=== PATIENT | female | born 1955 | race Caucasian/White ===

== ENCOUNTER 2018-07-07 01:47 | Outpatient (CLI) | payer BC, SELFPAY ==
[2018-07-07 08:00] LABS: Abs Immature Grans 0.01 k/cumm (0.0-0.09); Absolute Basophil Count 0.03 k/cumm (0.0-0.2); Absolute Lymphocyte Count 0.85 k/cumm (1.2-3.4); Basophils % 0.6; Eosinophils % 1.9; HCT 39.6 % (36.0-46.0); HGB 13.1 g/dL (12.0-15.5); Immature Grans % 0.2; Lymphocytes % 16.4; Mean Corp. HGB Concentration 33.1 g/dL (32.0-36.0); Mean Corpuscular Hemoglobin 30.6 pg (27.0-33.0); Mean Corpuscular Volume 92.5 fL (80-95); Mean Platelet Volume 8.8 fL (8.0-11.0); Monocytes % 7.7; Neutrophils % 73.2; Platelet Count 330 x1000/uL (130-400); RBC 4.28 m/cumm (4.00-5.20); RBC Distribution Width 14.1 % (11.7-14.6); White Blood Cell Count 5.19 k/cumm (4.4-10.8)
[2018-07-07 08:05] LABS: Anion Gap 5.9 mmol/L (3-11); BUN 25 mg/dL (7-18); CO2 31.1 mmol/L (21.0-32.0); CREATININE 0.78 mg/dL (0.55-1.02); Calcium 9.1 mg/dL (8.5-10.1); Chloride 104 mmol/L (98-107); Glucose 111 mg/dL (70-100); Potassium 3.9 mmol/L (3.5-5.1); Sodium 141 mmol/L (136-145)
[2018-07-08 09:47] LABS: IgA 370 mg/dL (85-499); IgG 1168 mg/dL (610-1616); IgM 21 mg/dL (35-242); Kappa Free Light Chain 1.54 mg/dl (0.33-1.94); Lambda Free Light Chain 6.09 mg/dl (0.57-2.63)
[2018-07-08 13:11] LABS: Albumin 60.2 % (55.8-66.1); Monoclonal Spike 7.8 %; Total Protein 7.1 g/dl (6.3-8.2)
== END 2018-07-07 02:07 ==
PROVIDERS: Nurse Practitioner; PCP Family Medicine; Visit Provider Internal Medicine Hematology & Oncology
DX: C90.00 Multiple myeloma not having achieved remission (principal)
CPT/HCPCS: 36415; 80048; 82784; 83883; 84165; 85025

== ENCOUNTER 2019-06-28 07:08 | Outpatient (CLI) | payer BC, SELFPAY ==
[2019-06-28 07:45] LABS: Abs Immature Grans 0.01 k/cumm (0.0-0.09); Absolute Basophil Count 0.05 k/cumm (0.0-0.2); Absolute Eosinophil Count 0.26 k/cumm (0.0-0.7); Absolute Lymphocyte Count 1.01 k/cumm (1.2-3.4); Absolute Monocyte Count 0.37 k/cumm (0.11-0.7); Absolute Neutrophil Count 3.92 k/cumm (1.2-6.7); Basophils % 0.9; Eosinophils % 4.6; HCT 39.2 % (36.0-46.0); Immature Grans % 0.2 %; Mean Corp. HGB Concentration 33.2 g/dL (32.0-36.0); Mean Corpuscular Hemoglobin 30.6 pg (27.0-33.0); Mean Corpuscular Volume 92.2 fL (80-95); Mean Platelet Volume 8.7 fL (8.0-11.0); Monocytes % 6.6; Neutrophils % 69.7; Platelet Count 354 x1000/uL (130-400); RBC 4.25 m/cumm (4.00-5.20); RBC Distribution Width 14.1 % (11.7-14.6); White Blood Cell Count 5.62 k/cumm (4.4-10.8)
[2019-06-28 08:56] LABS: ALT 31 U/L (14-59); AST 24 U/L (15-37); Albumin 3.8 g/dL (3.4-5.0); Alkaline Phosphatase 99 U/L (46-116); Anion Gap 8.3 mmol/L (3-11); BUN 21 mg/dL (7-18); Bilirubin, Total 0.6 mg/dL (0.2-1.0); CO2 29.7 mmol/L (21.0-32.0); CREATININE 0.83 mg/dL (0.55-1.02); Chloride 103 mmol/L (98-107); Glucose 110 mg/dL (74-106); Potassium 4.1 mmol/L (3.5-5.1); Sodium 141 mmol/L (136-145); Total Protein 7.3 g/dL (6.4-8.2)
[2019-06-29 11:17] LABS: IgA 330 mg/dL (85-499); IgG 1269 mg/dL (610-1,616); IgM 25 mg/dL (35-242); Kappa Free Light Chain 1.34 mg/dL (0.33-1.94); Lambda Free Light Chain 8.77 mg/dL (0.57-2.63)
[2019-06-29 15:53] LABS: Albumin 57.8 % (55.8-66.1); Comment (See Note); Monoclonal Spike 7.7 % (None Seen); Total Protein 7.2 g/dL (6.3-8.2)
[2019-07-06 13:02] LABS: Immunotyping, Serum (See Note)
== END 2019-06-28 07:28 ==
PROVIDERS: PCP Family Medicine; Visit Provider Internal Medicine Hematology & Oncology
DX: C90.00 Multiple myeloma not having achieved remission (principal)
CPT/HCPCS: 36415; 80053; 82784; 83883; 84165; 85025; 86320

== ENCOUNTER 2020-02-06 14:28 | Outpatient (REF) | payer BC, SELFPAY ==
[2020-02-09 05:47] LABS: Patient Race White; SARS-CoV-2 RNA Undetected (Undetected); SARS-CoV-2 Specimen Source Nasopharynx
== END 2020-02-06 14:48 ==
LOC: NCHCN 14:28
PROVIDERS: PCP Family Medicine; Visit Provider Family Medicine
DX: Z20.828 Contact with and (suspected) exposure to other viral communicable diseases (principal)
CPT/HCPCS: U0003

== ENCOUNTER 2021-07-08 14:37 | Outpatient (REF) | payer BC, SELFPAY ==
[2021-07-08 16:14] LABS: Calculated LDL 88 mg/dL (<100); Cholesterol 174 mg/dL (<200); HDL Cholesterol 77 mg/dL (40-60); Triglyceride 49 mg/dL (<150)
== END 2021-07-08 14:38 | disposition home or self-care (01) ==
LOC: NCHCN 14:37
PROVIDERS: PCP Family Medicine; Visit Provider Family Medicine
DX: E66.3 Overweight (principal)
CPT/HCPCS: 80061

== ENCOUNTER 2021-07-23 01:43 | Outpatient (CLI) | payer BC, SELFPAY ==
--- NOTE | 2021-07-23 | DI.DEXA_ITS ---
Exam(s) XR DEXA BONE DENSITY W/WO DIANA EXAM: XR DEXA BONE DENSITY W/WO DIANA CLINICAL HISTORY: OSTEOPENIA,M85.80 TECHNIQUE: COMPARISON: Comparison examination is 12/27/2013. FINDINGS: Lateral Spine Image: Unremarkable. No compression deformities identified. Left hip: Total T-Score: -0.1. This compares to 0.0 on the prior examination. Total Z-Score: 1.1 T- and Z-scores: Within normal limits. Lumbar Spine: Total T-Score: -0.5. This compares to -1.3 on the prior examination. Total Z-Score: 1.3 T- and Z-scores: Within normal limits. IMPRESSION: No evidence of osteoporosis.
--- NOTE | 2021-07-23 17:30 | DI.MAMMO_ITS ---
Exam(s) MAMMO SCREENING EXAM: MAMMO SCREENING CLINICAL HISTORY: SCREENING FOR BREAST CA, Z12.39 TECHNIQUE: Mammograms were interpreted according to the usual protocol including computer analysis w [employer] system, tomosynthesis and C-view imaging. COMPARISON: FINDINGS: the breasts are of moderate density with fairly symmetrical distribution of fibroglandular tissue. No dominant mass or clumped microcalcification is identified in either breast. Small well-circumscri bed nodules are seen in the retroareolar portion of right and left breast and these appear essentiall y unchanged in comparison with the prior mammogram of December 2013. No other significant change seen. IMPRESSION: No specific evidence of malignancy at this time. Routine screening examinations are suggested at yea rly intervals in this age group according to the ACS ACR guidelines. BI-RADS Category 1 - Negative Breast Density - Category B - Scattered areas of fibroglandular density
== END 2021-07-23 02:03 ==
PROVIDERS: PCP Family Medicine; Visit Provider Family Medicine
DX: Z13.820 Encounter for screening for osteoporosis (principal)
CPT/HCPCS: 77063; 77067; 77080

== ENCOUNTER 2021-07-30 14:37 | Outpatient (REF) | payer BC, SELFPAY ==
--- NOTE | 2021-07-30 14:10 | PAPFT_PTH ---
PATIENT: Mahi Driver LOC: [facility]#:[id number] AGE/SX: 65/F ROOM: RE07/30/[address]: Flakito Malone : 1955 BED: DIS: 07/30/2021 SPEC #: [id number] RECD: 07/31/21 13:01 STATUS: NIYAH REQ #: [id number] WILMER: 07/30/21 14:[address]: Flakito Malone DEPT: [facility] Cytology RECD BY: Joanna Castaneda ENTERED: 07/31/21 13:02 SP TYPE: PAPFT OTHR DR: Harsh Meneses Tissues: 1 - CX/ENDOCX FOR PAP SMEARS Procedures: PAP THIN PREP/UVM Screening HPV DNA PROBE Comments: [id number]
== END 2021-07-30 14:38 | disposition home or self-care (01) ==
LOC: NCHCN 14:37
PROVIDERS: PCP Family Medicine; Visit Provider Family Medicine
DX: Z12.4 Encounter for screening for malignant neoplasm of cervix (principal); Z11.51 Encounter for screening for human papillomavirus (HPV); Z01.419 Encounter for gynecological examination (general) (routine) without abnormal findings
CPT/HCPCS: 88142; 87624

== ENCOUNTER 2021-08-18 02:30 | Outpatient (CLI) | payer BC, SELFPAY ==
[2021-08-18 12:25] LABS: Abs Immature Grans 0.02 10^3/uL (0.0-0.06); Absolute Basophil Count 0.06 10^3/uL (0.0-0.2); Absolute Eosinophil Count 0.14 10^3/uL (0.0-0.7); Absolute Lymphocyte Count 1.46 10^3/uL (1.2-3.4); Absolute Monocyte Count 0.44 10^3/uL (0.1-0.8); Absolute Neutrophil Count 5.08 10^3/uL (1.2-6.7); Basophils % 0.8; Eosinophils % 1.9; HCT 39.4 % (36.0-46.0); HGB 12.7 g/dL (11.2-15.7); Immature Grans % 0.3; Lymphocytes % 20.3; MCH 30.5 pg (27.0-33.0); MCHC 32.2 % (32.0-36.0); MCV 94.7 fL (80-95); MPV 9.1 fL (8.0-11.0); Monocytes % 6.1; Neutrophils % 70.6; Nucleated RBC 0 %; Platelet Count 300 10^3/uL (130-400); RBC 4.16 10^6/uL (3.93-5.22); RDW 13.3 % (11.7-14.6); RDW-SD 46.5 fL
[2021-08-18 13:38] LABS: ALT 28 U/L (14-59); AST 21 U/L (15-37); Albumin 4.1 g/dL (3.4-5.0); Alkaline Phosphatase 108 U/L (46-116); Anion Gap 8.1 mmol/L (3-11); BUN 24 mg/dL (7-18); Bilirubin, Total 0.5 mg/dL (0.2-1.0); CO2 27.9 mmol/L (21.0-32.0); CREATININE 0.7 mg/dL (0.55-1.02); Calcium 9.7 mg/dL (8.5-10.1); Chloride 106 mmol/L (98-107); Glucose 93 mg/dL (74-106); LDH 238 U/L (81-234); Potassium 4.1 mmol/L (3.5-5.1); Sodium 142 mmol/L (136-145); Total Protein 7.4 g/dL (6.4-8.2)
[2021-08-19 10:53] LABS: IgA 230 mg/dL (85-499); IgG 1223 mg/dL (610-1,616); IgM 18 mg/dL (35-242); Kappa Free Light Chain 1.19 mg/dL (0.33-1.94); Lambda Free Light Chain 8.73 mg/dL (0.57-2.63)
[2021-08-19 14:45] LABS: Albumin 59.6 % (55.8-66.1); Comment (See Note); Monoclonal Spike 8.3 % (None Seen); Total Protein 7.2 g/dL (6.3-8.2)
[2021-08-20 09:56] LABS: Immunotyping, Serum (See Note)
== END 2021-08-18 02:31 | disposition home or self-care (01) ==
LOC: LBO 02:30
PROVIDERS: PCP Family Medicine; Visit Provider Internal Medicine
DX: C90.00 Multiple myeloma not having achieved remission (principal)
CPT/HCPCS: 36415; 80053; 82784; 83615; 83883; 84165; 85025; 86320

== ENCOUNTER 2022-09-09 03:15 | Outpatient (CLI) | payer BC, SELFPAY ==
[2022-09-09 16:58] LABS: Abs Immature Grans 0.02 10^3/uL (0.0-0.06); Absolute Basophil Count 0.06 10^3/uL (0.0-0.2); Absolute Eosinophil Count 0.23 10^3/uL (0.0-0.7); Absolute Lymphocyte Count 1.68 10^3/uL (1.2-3.4); Absolute Monocyte Count 0.41 10^3/uL (0.1-0.8); Absolute Neutrophil Count 3.56 10^3/uL (1.2-6.7); Eosinophils % 3.9; HCT 42.7 % (36.0-46.0); HGB 14.1 g/dL (11.2-15.7); Immature Grans % 0.3; Lymphocytes % 28.2; MCH 30.9 pg (27.0-33.0); MCV 93 fL (80-95); MPV 9.1 fL (8.0-11.0); Monocytes % 6.9; Neutrophils % 59.7; Platelet Count 353 10^3/uL (130-400); RBC 4.57 10^6/uL (3.93-5.22); RDW 13.3 % (11.7-14.6); RDW-SD 46.1 fL; WBC 5.96 10^3/uL (4.4-10.8)
[2022-09-09 18:56] LABS: ALT 37 U/L (14-59); AST 27 U/L (15-37); Albumin 4.5 g/dL (3.4-5.0); Alkaline Phosphatase 102 U/L (46-116); Anion Gap 5.6 mmol/L (3-11); BUN 13 mg/dL (7-18); Bilirubin, Total 0.5 mg/dL (0.2-1.0); CO2 32.4 mmol/L (21.0-32.0); CREATININE 0.8 mg/dL (0.55-1.02); Calcium 9.5 mg/dL (8.5-10.1); Chloride 98 mmol/L (98-107); Estimated GFR 81.21 (mL/min/1.73m2); Glucose 130 mg/dL (74-106); Potassium 4.1 mmol/L (3.5-5.1); Sodium 136 mmol/L (136-145); Total Protein 8.2 g/dL (6.4-8.2)
[2022-09-11 09:51] LABS: Lambda Free Light Chain 9.42 mg/dL (0.57-2.63)
== END 2022-09-09 03:16 | disposition home or self-care (01) ==
LOC: LBO 03:15
PROVIDERS: PCP Family Medicine; Visit Provider Nurse Practitioner
DX: C90.00 Multiple myeloma not having achieved remission (principal); D47.2 Monoclonal gammopathy
CPT/HCPCS: 36415; 80053; 83883; 85025

== ENCOUNTER → 2023-03-01 00:56 | Outpatient (CLI) | payer BC, SELFPAY ==
--- NOTE | 2023-03-01 09:27 | DI.US_ITS ---
APPROVED REPORT EXAM: Comprehensive 2D, Doppler, and color-flow Echocardiogram Patient Location: Out-Patient Mds Nurse: Odin Guerra RDCS (AE) Indications: aneurysm ascending aorta, cardiomyopathy Conclusion Mild concentric left ventricular hypertrophy. Ejection fraction is 65%. Septal motion is consistent with paced rhythm Normal right ventricular size and systolic function Both atria are normal in size Device lead noted in the right heart Trileaflet aortic valve with trace regurgitation Normal mitral valve with mild regurgitation Normal tricuspid valve with trace to mild regurgitation. Estimated right ventricular systolic pressu re is 33 mmHg Dilated ascending aorta measuring 4.37 cm Wall motion Left Ventricle The left ventricle is grossly normal size. The left ventricular systolic function is normal. The left ventricular ejection fraction is within the normal range. Mild concentric left ventricular hypertrop hy. Paradoxical septal motion consistent with paced rhythm. There is no ventricular septal defect vis ualized. LVEF is 65%. Right Ventricle The right ventricle is normal size. Right ventricular systolic function is grossly normal. The RVSP i s 32.8 mmHg. Pacemaker lead is present in the right ventricle. Atria The left atrium size is normal. The right atrium size is normal. The interatrial septum is intact wit h no evidence for an atrial septal defect. Aortic Valve The aortic valve is normal in structure. Aortic valve is trileaflet. There is no aortic valvular sten osis. Trace aortic regurgitation. Mitral Valve The mitral valve is normal in structure. No evidence of mitral valve stenosis. Mild mitral regurgitat ion. Tricuspid Valve The tricuspid valve is normal in structure. There is no tricuspid valve stenosis. Mild to moderate tr icuspid regurgitation. Pulmonic Valve The pulmonary valve is normal in structure. There is no pulmonic valvular stenosis. There is no pulmo lucie valvular regurgitation. Great Vessels The aortic root is normal in size. The ascending aorta is dilated Aortic arch is normal in caliber. I VC is normal in size and collapses >50% with inspiration. Pericardium There is no pericardial effusion. 2D Dimensions IVSD d PLAX 1.33 cm F: 0.6-1.0 Ao Root d 3.18 cm F: 2.7 - 3.3 LVPW d PLAX 1.26 cm F: 0.6 - 1.0 Ao Asc Diam d 4.37 cm F: 2.3 - 3.1 LVID d PLAX 4.91 cm F: 3.8 - 5.2 RVOT Diameter 2.21 cm LVDs 3.48 cm F: 2.2 - 3.5 LV EF Teichholz 55.8 % FS 29.15 % LV EDV (Teich) 113.5 mL LV ESV (Teich) 50.2 mL Stroke Vol Index (Teich) 31.83 M-Mode TAPSE 2.33 cm (M/F) >1.7 Auto EF LV EDV A4C 136.4 mL LV EDV A2C 135.5 mL LV EDV BP LV ESV A4C 59.4 mL LV ESV A2C 64.0 mL LV ESV BP LVEF(%) A4C 56.5 % LVEF(%) A2C 52.8 % LVEF(%) BP LV SV A4C 77.1 ml LV SV A2C 71.5 ml LV SV BP LV CO A4C 4.7 L/min LV CO A2C 4.6 L/min LV CO BP HR A4C 60.61 BPM HR A2C 63.83 BPM LV EDV Index (BP) LA Volume LA Length A4C 5.8 cm LA Length A2C LA Area A4C s 14.29 cm2 LA Area A2C s LA Vol A4C A-L 29.70 mL LA Vol A2C A-L LA Vol Biplane A-L LA Vol A4C MOD 27.5 mL LA Vol A2C MOD LA Vol BP MOD RA Volume RA Area A4C 13.5 cm2 RA ESV A4C (A-L) 29.8mL RA Vol/BSA A4C A-L RA Length A4C 5.2 cm RA ESV A4C (MOD) 29.2mL LV Diastology MV E' medial 0.072 (>0.07 m/s) MV E Vmax 0.48 (0.4-1.3 m/s) MV E/E' MED 6.70 (<14) MV A Vmax 0.75 (0.4-1.3 m/s) MV E' lateral 0.092 (>0.1 m/s) E/A Ratio 0.6 MV E/E' LAT 5.20 (<14) MV E' Average 0.082 m/s MV E/E'(average) 5.86 Aortic Valve AoV Vmax 1.79 m/s LVOT Vmax 1.29 m/s AoV Peak Grad 12.8 mmHg LVOT Peak Grad 6.7 mmHg AoV Area (Vmax) 2.64 cm2 LVOT VTI 0.242 m AoV VTI 0.345 m LVOT Mean Grad 3.7 mmHg AoV Mean Ed. 1.35 m/s LVOT SV 88.59 mL AoV Mean Grad 7.9 mmHg LVOT Diam s 2.15 cm AoV Area (VTI) 2.57 cm2 Velocity Ratio 0.72 Mitral Valve MV DT 174 (160-240 msec) Pulmonary Valve PV Vmax 1.96 (0.5-1.5 m/s) RVOT Vmax 1.62 m/s PV Peak Grad 15.5 mmHg RVOT Peak Gr. 10.6 mmHg PV Mean Ed 1.26 m/s RVOT VTI 0.287 m PV Mean Grad 7.5 mmHg RVOT Diam s 2.21 cm (M/F) 2.1-3.5 PVA 3.16 cm2 RVOT Mean Gr. 5.6 mmHg Tricuspid Valve RA Pressure 3.00 mmHg TR Vmax 2.73 m/s TR Peak Grad 29.7 mmHg RVSP (TR) 32.8 mmHg
== END ==
PROVIDERS: PCP Family Medicine; Visit Provider Family Medicine
DX: I71.21 Aneurysm of the ascending aorta, without rupture (principal); I42.9 Cardiomyopathy, unspecified
CPT/HCPCS: 93306

== ENCOUNTER 2023-09-14 04:41 | Outpatient (CLI) | payer BC, SELFPAY ==
[2023-09-14 16:12] LABS: Abs Immature Grans 0.04 10^3/uL (0.0-0.06); Absolute Basophil Count 0.06 10^3/uL (0.0-0.2); Absolute Eosinophil Count 0.13 10^3/uL (0.0-0.7); Absolute Lymphocyte Count 1.66 10^3/uL (1.2-3.4); Absolute Monocyte Count 0.62 10^3/uL (0.1-0.8); Basophils % 0.7; Eosinophils % 1.5; HGB 13.5 g/dL (11.2-15.7); Immature Grans % 0.5; Lymphocytes % 19.7; MCH 30.9 pg (27.0-33.0); MCHC 32.9 % (32.0-36.0); MCV 94 fL (80-95); MPV 8.8 fL (8.0-11.0); Monocytes % 7.4; Neutrophils % 70.2; Platelet Count 328 10^3/uL (130-400); RBC 4.37 10^6/uL (3.93-5.22); RDW 13.4 % (11.7-14.6); RDW-SD 46.5 fL; WBC 8.41 10^3/uL (4.4-10.8)
[2023-09-14 16:14] LABS: Bilirubin Negative (Negative); Blood Negative (Negative); Clarity Sl Cloudy (Clear); Glucose Negative (Negative); Ketones Negative (Negative); Leukocyte Esterase Negative (Negative); Nitrite Positive (Negative); Specific Gravity >= 1.030 (1.005-1.025); Urobilinogen 0.2 mg/dL (Up to 0.2); pH 5.5 (5-8)
[2023-09-14 16:22] LABS: Bacteria Many HPF (Negative); C & S Indicated? Yes; Casts Negative LPF (Negative); Crystals Negative HPF (Negative); Epithelial Cells Few HPF (Negative); Mucus Negative (Negative); RBC Negative HPF (0-2)
[2023-09-14 20:33] LABS: ALT 32 U/L (14-59); AST 26 U/L (15-37); Alkaline Phosphatase 115 U/L (46-116); Anion Gap 5.1 mmol/L (3-11); BUN 19 mg/dL (7-18); Bilirubin, Total 0.5 mg/dL (0.2-1.0); CO2 32.9 mmol/L (21.0-32.0); CREATININE 0.8 mg/dL (0.55-1.02); Calcium 9.7 mg/dL (8.5-10.1); Chloride 102 mmol/L (98-107); Estimated GFR 80.71 (mL/min/1.73m2); Glucose 85 mg/dL (74-106); LDH 246 U/L (81-234); Potassium 3.9 mmol/L (3.5-5.1); Sodium 140 mmol/L (136-145); Total Protein 7.8 g/dL (6.4-8.2)
[2023-09-16 09:13] LABS: IgA 194 mg/dL (85-499); IgG 1404 mg/dL (610-1616); IgM 18 mg/dL (35-242); Kappa Free Light Chain 1.47 mg/dL (0.33-1.94); Lambda Free Light Chain 11.26 mg/dL (0.57-2.63)
[2023-09-16 15:22] LABS: Albumin 60.6 % (55.8-66.1); Albumin g/dL 4.7 g/dL (3.6-5.2); Comment (See Note); Monoclonal Spike 9.2 % (None Seen); Monoclonal Spike g/dL 0.7 g/dL (None Seen); Total Protein 7.7 g/dL (6.3-8.2)
[2023-09-16 16:39] LABS: Immunotyping, Serum (See Note)
[2023-09-17 10:23] LABS: Beta-2-Microglobulin 2.06 mcg/mL
== END 2023-09-14 04:42 | disposition home or self-care (01) ==
LOC: LBO 04:41
PROVIDERS: PCP Family Medicine; Visit Provider Internal Medicine Hematology & Oncology
DX: C90.00 Multiple myeloma not having achieved remission (principal); D47.2 Monoclonal gammopathy; I42.9 Cardiomyopathy, unspecified
CPT/HCPCS: 36415; 80053; 82784; 87077; 81003; 81015; 82232; 83615; 83883; 84165; 85025; 86320; 87086; 87186

== ENCOUNTER → 2023-10-12 03:42 | Outpatient (CLI) | payer BC, SELFPAY ==
--- NOTE | 2023-10-12 08:04 | DI.MAMMO_ITS ---
Exam(s) MAMMO SCREENING EXAM: MAMMO SCREENING CLINICAL HISTORY: SCREENING MAMMO Z00.00 ADULT MEDICAL EXAM TECHNIQUE: Bilateral full field digital CC and MLO mammographic images were obtained with 3D tomosyn thesis and utilizing computer aided detection (CAD). COMPARISON: Available for comparison. FINDINGS: Masses/Architectural Distortion: There are stable nodules in both breasts. No new nodules are seen. No areas of architectural distortion are present. Microcalcifications: No suspicious pleomorphic-type are seen. Skin Thickening/Nipple Retraction: None. IMPRESSION: 1. No significant interval change with no specific features of malignancy noted. 2. Unless there is more urgent need, screening mammography is recommended, as per [employer] guidelines. BI-RADS Category 2 - Benign Findings Breast Density - Category B - Scattered areas of fibroglandular density Breast density category C or D implies that the patient has dense breast tissue. Dense breast tissue is very common and is not abnormal but dense breast tissue can make it harder to find cancer on a ma mmogram. Also, dense breast tissue may increase their breast cancer risk. This information about the result of the mammogram report was provided to the patient to raise their awareness. Use this report when you speak with the patient about their risks for breast cancer, which includes their family hist ory. At that time, you may recommend for more screening tests (Ultrasound or MRI) as they might be us eful based on their risk. A negative radiographic report should not delay biopsy if a dominant or clinically suspicious mass is present. Up to ten percent of cancers are not identified on mammography. A negative report may reinforce clinical impression. Adenosis and dense breasts may obscure an underlying neoplasm. False positive reports average 6 to 10%. Patient will receive a letter notifying them of these results.
== END ==
PROVIDERS: PCP Family Medicine; Visit Provider Family Medicine
DX: Z12.31 Encounter for screening mammogram for malignant neoplasm of breast (principal)
CPT/HCPCS: 77063; 77067

== ENCOUNTER 2024-07-31 03:13 | Outpatient (CLI) | payer BC, SELFPAY ==
[2024-07-31 12:47] LABS: Abs Immature Grans 0.02 10^3/uL (0.0-0.06); Absolute Basophil Count 0.03 10^3/uL (0.0-0.2); Absolute Eosinophil Count 0.04 10^3/uL (0.0-0.7); Absolute Lymphocyte Count 0.92 10^3/uL (1.2-3.4); Absolute Neutrophil Count 5.77 10^3/uL (1.2-6.7); Basophils % 0.4 %; Eosinophils % 0.5 %; HCT 42.3 % (36.0-46.0); HGB 13.4 g/dL (11.2-15.7); Immature Grans % 0.3 %; Lymphocytes % 12.6 %; MCH 30.5 pg (27.0-33.0); MCHC 31.7 % (32.0-36.0); MCV 96 fL (80-95); MPV 8.5 fL (8.0-11.0); Monocytes % 6.9 %; Neutrophils % 79.3 %; Platelet Count 280 10^3/uL (130-400); RBC 4.39 10^6/uL (3.93-5.22); RDW 13.4 % (11.7-14.6); RDW-SD 48.4 fL; WBC 7.28 10^3/uL (4.4-10.8)
== END 2024-07-31 03:14 | disposition home or self-care (01) ==
LOC: LBO 03:13
PROVIDERS: PCP Family Medicine; Visit Provider Obstetrics & Gynecology
DX: Z01.818 Encounter for other preprocedural examination (principal)
CPT/HCPCS: 36415; 86850; 86900; 86901; 85025

== ENCOUNTER 2024-08-02 06:12 | Day surgery (SDC) | payer BC, SELFPAY ==
[2024-08-02] VITALS (14 sets, daily range): BP systolic 107–174; BP diastolic 56–101; PULSE 54–86; RESP 13–28; TEMP 36.1–36.6; O2SAT 95–98; BMI 37.9
[2024-08-02] MEDS: Lactated Ringers 1,000 ML 125 ML IV (06:42)
--- NOTE | 2024-08-02 07:02 | ANES.PREOP_ITS ---
General Info Date of Service Date Performed: 08/02/24 Height: 5 ft 4 in Weight: 100.2 kg Body Mass Index (BMI): 37.9 Surgical Procedure: Operation Date: 08/02/24 07:40 Proposed Procedure Side Surgeon p Dilation & Curettage with Hysteroscopy, Possible Myosure Estela Fajardo DO Meds Allergies and Home Medications Allergies Allergy/AdvReac Type Severity Reaction Status Date / Time No Known Allergies Allergy Verified 08/02/24 06:31 Home Medication ?Medication ?Instructions ?Recorded hydrochlorothiazide 12.5 mg capsule 25 mg PO DAILY 07/13/24 lisinopril 10 mg tablet 10 mg PO DAILY 07/13/24 metoprolol tartrate 25 mg tablet 50 mg PO DAILY 07/13/24 Current Visit Medications: Current Medications Generic Name Dose Route Start Last Admin Trade Name Freq PRN Reason Stop Dose Admin Ringer's Solution 1,000 mls @ 125 mls/hr 08/02/24 06:00 08/02/24 06:42 IV 08/31/24 23:59 125 mls/hr INFUSION RADHA Administration IV Miscellaneous Supplies 1 each 08/02/24 06:00 Iv Access IV 08/31/24 23:59 DIRECTED RADHA Sodium Chloride 0 ml 08/02/24 06:00 Normal Saline Flush 10 Ml Syr IV 08/31/24 23:59 PRN PRN Sodium Chloride 0 ml 08/02/24 06:00 Normal Saline 10 Ml Vial IJ 08/31/24 23:59 DIRECTED PRN Sterile Water 0 ml 08/02/24 06:00 Water,Injection,Sterile 10 Ml Vial IJ 08/31/24 23:59 DIRECTED PRN PFSH Active Problems Active Problems: Problem Status Onset Code Thickened endometrium Acute R93.89 Cardiac arrhythmia Acute I49.9 Hypertension Chronic I10 Post-menopausal bleeding Acute N95.0 Medical History Medical History Cardiomyopathy Aneurysm of ascending aorta Complete heart block Pacemaker Surgical History Surgical History Knee joint replacement status (B) Tobacco Smoking/Tobacco Use Status: Never Alcohol Alcohol Intake: current Alcohol intake frequency: holidays/special occasions only Substance Use Substance use: Never Substance use type: does not use Prental History History 5 Para 3 Hx # Term Pregnancies Multiple births Hx # Pregnancies Ectopic pregnancies AB induced Hx Number of Living Children AB spontaneous 2 Past Pregnancies Del. Date GA/Weeks # Preg Succ Route Wgt Sex Labor Lgth Anesth esia Location Prov Complic 06/07/82 vaginal 06/07/84 vaginal 06/07/87 vaginal Delivery Date: 06/07/82 Last Updated by: Sandie Ledesma unsure of birthdate and gender Delivery Date: 06/07/84 Last Updated by: Sandie Ledesma unsure of birthdate and gender Delivery Date: 06/07/87 Last Updated by: Sandie Ledesma unsure of month and day Vital Signs and Lab Results Vital Signs Most Recent Vital Signs in EMR: Most Recent Vital Signs Temp Pulse Resp BP Pulse Ox 36.5 C 86 16 159/98 H 98 08/02/24 06:21 08/02/24 06:21 08/02/24 06:21 08/02/24 06:21 08/02/24 06:21 Lab Results Blood Type / Crossmatch: Antibody Screen NEGATIVE 07/31/24 Complete Blood Count: White Blood Count 7.28 10^3/uL (4.4-10.8) 07/31/24 12:43 Red Blood Count 4.39 10^6/uL (3.93-5.22) 07/31/24 12:43 Hemoglobin 13.4 g/dL (11.2-15.7) 07/31/24 12:43 Hematocrit 42.3 % (36.0-46.0) 07/31/24 12:43 Platelet Count 280 10^3/uL (130-400) 07/31/24 12:43 Complete Metabolic Panel: No Data to Display Liver Function Panel: No Data to Display Coagulation Panel: No Data to Display Cardiac Panel: No Data to Display Arterial Blood Gas: No Data to Display Venous Blood Gas: No Data to Display Pancreas Panel: No Data to Display Thyroid Panel: No Data to Display Infectious Disease: No Data to Display Blood Cultures: No Data to Display Toxicology Panel: No Data to Display Imaging and Studies Imaging and Studies Study information below may be from another EMR and interpreted by another provider. Please see original notes in EMR for more complete details. Echocardiogram Summary: 03/01/23 Conclusion Mild concentric left ventricular hypertrophy. Ejection fraction is 65%. Septal motion is consistent with paced rhythm Normal right ventricular size and systolic function Both atria are normal in size Device lead noted in the right heart Trileaflet aortic valve with trace regurgitation Normal mitral valve with mild regurgitation Normal tricuspid valve with trace to mild regurgitation. Estimated right ventricular systolic pressure is 33 mmHg Dilated ascending aorta measuring 4.37 cm Anesthesia Assessment and Plan Anesthesia History Personal History: No History of Anesthesia Complications and Awareness Under Anesthesia Family History: No Family History of Anesthesia Complications Exercise Tolerance Exercise Tolerance: Metabolic Equivalents>4 Pertinent Negatives Pertinent Negatives: No Symptoms of GERD, No Major Cardiovascular Symptoms or Complaints and No Major Pulmonary Symptoms or Complaints Cardiac & Pulmonary Exam Cardiac Exam: Normal S1/S2 Heart Sounds Pulmonary Exam: Clear Bilateral Breath Sounds Implantable Cardiac Device Does patient have a Pacemaker or an ICD?: Yes 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
--- NOTE | 2024-08-02 08:00 | ENDOMET_PTH ---
PATIENT: Mahi Driver LOC: [facility] U#:[id number] AGE/SX: 68/F ROOM: RE08/02/[address]: Estela Fajardo DO : 1955 BED: DIS: 08/02/2024 SPEC #: [id number] RECD: 08/02/24 09:51 STATUS: NIYAH RE #: [id number] WILMER: 08/02/24 08:[address]: Estela Fajardo DEPT: Surgical Specimen RECD BY: Cecily Cox ENTERED: 08/02/24 09:53 SP TYPE: Endomet OTHR DR: Flakito Malone Tissues: 1 - ENDOMETRIUM BX/CURRETTE 2 - ENDOCERVICAL BX/CURRETTE 3 - ENDOMETRIUM BX/CURRETTE Procedures: GROSS AND MICRO LEVEL 4 IMMUNOPEROXIDASE STAIN Comments: [id number]
[2024-08-02] MEDS: Silver Nitrate Stick 1 EACH (08:04)
--- NOTE | 2024-08-02 08:16 | ROE_ITS ---
Operative Note Operative Note PRE-OP DIAGNOSIS: Postmenopausal bleeding, thickened endometrium POST-OP DIAGNOSIS: same (With endometrial polyp) PROCEDURE: Hysteroscopy with dilation and curettage, removal of endometrial polyp SURGEON: Estela Fajardo ANESTHESIA TYPE: MAC Refer to Anesthesia Record ESTIMATED BLOOD LOSS: 10 PATHOLOGY: other (1. Endometrial polyp 2. Endocervical curettage 3. Endometrial curettage) COMPLICATIONS: None Indications: Postmenopausal bleeding, thickened endometrium Findings: Smooth regular endometrium. Normal visualization of the tubal ostia. Endometrial polyp. Procedure Description: After full informed consent was obtained, patient was taken the operating suite with IV running. She is placed in the dorsal supine position and monitored anesthesia care provided. She was then placed in the modified dorsolithotomy [facility] stirrups and prepped and draped in usual sterile fashion. Exam under anesthesia revealed a uterus that was midline and mobile. She had previously emptied her bladder. No antibiotic prophylaxis was warranted. She had pneumatic compression stockings for DVT prophylaxis. At this point, speculum was inserted into the vaginal vault and a single-tooth tenaculum used to grasp the anterior lip of the cervix. Cervical os dilated the point that hysteroscope could be passed. With instillation of normal saline, the endometrium was visualized. There is noted to be an endometrial polyp which was approximately 1-1/2 cm and thin in nature. At this point the hysteroscope was removed and a Frank stone polyp forcep used to grasp the polyp itself. This was removed without difficulty. At this point, endocervical curettage was performed, followed by endometrial curettage. Once the curetting was complete, the procedure was terminated. The single-tooth tenaculum was removed from the anterior lip of the cervix. The left puncture site was not hemostatic which was chemically cauterized with silver nitrate to achieve hemostasis. At this point speculum was removed, and the patient was returned to the dorsal supine position. She woke from anesthesia without difficulty and was taken to the surgical area in stable condition. Complications: None apparent Fluids: Crystalloid per anesthesia +60 mL of normal saline infiltration to the uterus with hysteroscope Pathology: 1. Endometrial polyp 2. Endocervical curettage 3. Endometrial curettage Findings: Smooth regular endometrium. Visualization of tubal ostia bilaterally. Small smooth appearing endometrial polyp, removed. EBL: 10 mL Date of Procedure: 08/02/24
--- NOTE | 2024-08-02 08:53 | W.ANESPOSTOP ---
Postoperative Evaluation Date, Time and Location Date Performed: 08/02/24 Time Performed: 08:48 Patient Location: PACU Vital Signs Most Recent Imported Vital Signs: Most Recent Vital Signs Temp Pulse Resp BP Pulse Ox 36.6 C 60 17 155/73 H 98 08/02/24 08:40 08/02/24 08:40 08/02/24 08:40 08/02/24 08:40 08/02/24 08:40 Pain Score Most Recent Pain Score: Most Recent Pain Score Pain Level 0 08/02/24 08:40 Assessment Mental Status: Awake (Alert & Oriented to Patient Baseline) Airway and Respiratory Function: Patent airway with normal (patient baseline) respiratory exam Cardiovascular Function: Hemodynamically Stable Hydration Status: Adequately Hydrated Nausea & Vomiting: No Nausea or Vomiting Pain: Pt. Denies Any Pain Peripheral Nerve Block: Patient did not receive a nerve block
== END 2024-08-02 09:35 | disposition home or self-care (01) ==
PROVIDERS: PCP Family Medicine; Visit Provider Obstetrics & Gynecology
PROC: 0UDB8ZZ Extraction of Endometrium, Via Natural or Artificial Opening Endoscopic (ICD-10-PCS; CPT 58558; principal; 2024-08-02 07:30)
DX: N95.0 Postmenopausal bleeding (principal); N84.0 Polyp of corpus uteri
CPT/HCPCS: 58558; 88305; 88361; J1885; J2003; J2405; J2704

== ENCOUNTER 2024-08-14 11:51 | Outpatient (CLI) | payer BC, SELFPAY ==
[2024-08-14 10:51] LABS: Abs Immature Grans 0.02 10^3/uL (0.0-0.06); Absolute Basophil Count 0.07 10^3/uL (0.0-0.2); Absolute Eosinophil Count 0.08 10^3/uL (0.0-0.7); Absolute Lymphocyte Count 1.37 10^3/uL (1.2-3.4); Absolute Monocyte Count 0.46 10^3/uL (0.1-0.8); Absolute Neutrophil Count 5.33 10^3/uL (1.2-6.7); Eosinophils % 1.1 %; HCT 42.1 % (36.0-46.0); HGB 14.1 g/dL (11.2-15.7); Immature Grans % 0.3 %; Lymphocytes % 18.7 %; MCH 31.4 pg (27.0-33.0); MCHC 33.5 % (32.0-36.0); MCV 94 fL (80-95); MPV 8.7 fL (8.0-11.0); Monocytes % 6.3 %; Neutrophils % 72.6 %; Platelet Count 351 10^3/uL (130-400); RBC 4.49 10^6/uL (3.93-5.22); RDW 13.2 % (11.7-14.6); RDW-SD 45.5 fL; WBC 7.33 10^3/uL (4.4-10.8)
[2024-08-14 11:19] LABS: ALT 33 U/L (14-59); AST 27 U/L (15-37); Albumin 4.1 g/dL (3.4-5.0); Alkaline Phosphatase 106 U/L (46-116); Anion Gap 9.3 mmol/L (3-11); BUN 21 mg/dL (7-18); Bilirubin, Total 0.7 mg/dL (0.2-1.0); CO2 27.7 mmol/L (21.0-32.0); CREATININE 0.9 mg/dL (0.55-1.02); Calcium 9.6 mg/dL (8.5-10.1); Chloride 104 mmol/L (98-107); Estimated GFR 69.64 (mL/min/1.73m2); Glucose 118 mg/dL (74-106); Potassium 3.9 mmol/L (3.5-5.1); Sodium 141 mmol/L (136-145); Total Protein 8.2 g/dL (6.4-8.2)
[2024-08-15 10:33] LABS: IgA 167 mg/dL (85-499); IgG 1478 mg/dL (610-1616); IgM 20 mg/dL (35-242); Kappa Free Light Chain 1.23 mg/dL (0.33-1.94)
[2024-08-15 15:53] LABS: Albumin 59.9 % (55.8-66.1); Albumin g/dL 4.6 g/dL (3.6-5.2); Comment (See Note); Monoclonal Spike 10.3 % (None Seen); Monoclonal Spike g/dL 0.8 g/dL (None Seen); Total Protein 7.7 g/dL (6.3-8.2)
[2024-08-15 15:54] LABS: Albumin, Urine % 27.1 %; Albumin, Urine mg/dL 2 mg/dL; Globulins, Urine % 72.9 %; Globulins, Urine mg/dL 4 mg/dL; Immunotyping, Urine (See Note); Monoclonal Spike, Urine 3.5 %; Monoclonal Spike, Urine mg/dL <1 mg/dL; Total Protein Urine 6 mg/dL (See Note)
[2024-08-15 16:56] LABS: Immunotyping, Serum (See Note)
== END 2024-08-14 11:52 | disposition home or self-care (01) ==
PROVIDERS: PCP Family Medicine; Visit Provider Nurse Practitioner
DX: C90.00 Multiple myeloma not having achieved remission (principal); D47.2 Monoclonal gammopathy; I42.9 Cardiomyopathy, unspecified
CPT/HCPCS: 36415; 80053; 82784; 84156; 84166; 86335; 83883; 84165; 85025; 86320